=== PATIENT | female | born 1980 | race Native Hawaiian/Other Pacific Islander ===

== ENCOUNTER 2017-03-18 09:35 | Inpatient (IN) | payer BC ==
[~2017-03-18] VITALS: Ht 170.2 cm; Wt 99.1 kg
[~2017-03-18 09:35] MED LIST: ADIPEX PO; HYDR25TA60 PO
[2017-03-18 10:33] LABS: PLATELET COUNT 339 K/uL (152-353)
[2017-03-18 10:39] VITALS: BP 178/90; TEMP 98.2; Ht 170.2 cm; Wt 99.1 kg
[2017-03-18] MEDS ORDERED: ZOFRAN ODT4 MG OR (10:47)
[2017-03-18] MEDS ORDERED: BENTYL10 MG PO (10:52)
[2017-03-18] MEDS ORDERED: NITROFUR MAC50 MG OR (10:53)
[2017-03-18] MEDS ORDERED: HYDR10TA47 PO (10:53)
[2017-03-18 10:58] LABS: POTASSIUM 3.6 mmol/L (3.6-5.2)
[2017-03-18 12:00] VITALS: BP 172/103; TEMP 98.6
[2017-03-18 16:00] VITALS: BP 159/89; TEMP 98.5
[2017-03-18 20:21] VITALS: BP 190/99; TEMP 99
[2017-03-19] VITALS: BP 155/85; TEMP 99.1
[2017-03-19 04:00] VITALS: BP 164/76; TEMP 98.5
[2017-03-19 06:07] LABS: POTASSIUM 3.9 mmol/L (3.6-5.2)
[2017-03-19 06:12] LABS: PLATELET COUNT 303 K/uL (152-353)
[2017-03-19 08:00] VITALS: BP 162/73; TEMP 98.6
[2017-03-19 11:50] VITALS: BP 163/79; TEMP 98.7
[2017-03-19 16:00] VITALS: BP 154/98; TEMP 98.5
[2017-03-19 20:00] VITALS: BP 186/94; TEMP 97.5
[2017-03-20] VITALS: BP 155/81; TEMP 98.4
[2017-03-20 04:00] VITALS: BP 143/90; TEMP 98.5
[2017-03-20 06:37] LABS: POTASSIUM 3.9 mmol/L (3.6-5.2)
[2017-03-20 06:38] LABS: PLATELET COUNT 297 K/uL (152-353)
[2017-03-20 08:00] VITALS: BP 188/95; TEMP 98.4
[2017-03-20 12:00] VITALS: BP 178/87; TEMP 98.3
== END 2017-03-20 16:38 | disposition home or self-care (01) | DRG 440 ==
LOC: MED/SURG 09:35
PROVIDERS: ADMIT Emergency Medicine
DX: K85.90 Acute pancreatitis without necrosis or infection, unspecified (principal); E66.8 Other obesity; R10.11 Right upper quadrant pain
CPT/HCPCS: 36415; 36591; 80053; 80061; 81000; 82150; 83036; 83605; 83690; 85027; 85651; 86140; 93005; 94760; 96365; 96366; 96375; 99220; A9576; G0378; G0379; J1170; J1650; J2405; Q9963